=== PATIENT | female | born 2000 | race Caucasian/White ===

== ENCOUNTER → 2023-08-31 09:37 | Outpatient (REF) | payer OTHER, SELFPAY ==
[2023-09-03 18:18] LABS: Quantiferon Mitogen minus NIL >10.00 IU/mL; Quantiferon NIL 0.04 IU/mL; Quantiferon Plus TB1 minus NIL 0.02 IU/mL (0.00-0.34); Quantiferon Plus TB2 minus NIL 0.03 IU/mL (0.00-0.34); Quantiferon TB Gold Plus Negative (Negative)
== END ==
LOC: OHS 09:37
PROVIDERS: ATTENDING PHYSICIAN Nurse Practitioner
DX: Z23 Encounter for immunization (principal)
CPT/HCPCS: 36415; 86480